=== PATIENT | female | born 1975 | race Caucasian/White ===

== ENCOUNTER 2017-08-19 23:54 | Emergency (ER) | payer SELFPAY ==
[~2017-08-19] VITALS: Ht 167.6 cm; Wt 91.0 kg
[~2017-08-19 23:54] MED LIST: NO HOME MEDS
[2017-08-20 00:50] LABS: CLARITY,URINE CLEAR (Clear); COLOR,URINE YELLOW (Yellow); GLUCOSE, URINE NEGATIVE (Neg); KETONES,URINE NEGATIVE (Neg); LEUKOCYTE ESTERASE ,URINE NEGATIVE (Neg); NITRITES, URINE NEGATIVE (Neg); OCCULT BLOOD,URINE MODERATE (Neg); PROTEIN,URINE NEGATIVE (Neg); UROBILINOGEN,URINE 0.2 E.U/dL (0.2-1.0)
[2017-08-20 01:12] LABS: UA COLLECTION TYPE CLN CATCH MIDSTREAM
[2017-08-20 01:13] LABS: BACTERIA,URINE FEW /HPF (Neg); MUCUS STRANDS MODERATE /LPF (Neg); SQUAMOUS EPITHELIAL CELL,UR FEW /LPF (FEW)
[2017-08-20 02:06] VITALS: BP 153/101
== END 2017-08-20 03:30 | disposition left against medical advice (07) ==
LOC: ER 23:54
DX: M54.5 Low back pain (principal); Z53.21 Procedure and treatment not carried out due to patient leaving prior to being seen by health care provider
CPT/HCPCS: 81001; 87088; 99281

== ENCOUNTER 2018-01-21 18:40 | Inpatient (IN) | payer BC, OTHER ==
[~2018-01-21] VITALS: Ht 165.1 cm; Wt 87.7 kg
[2018-01-21 19:25] LABS: BASOPHILS % (AUTO) 0.3 % (0-1); EOSINOPHILS # (AUTO) 0.1 X10'3 (0-0.9); EOSINOPHILS % (AUTO) 1.5 % (0-6); HEMATOCRIT 36.2 % (35.0-45.0); HEMOGLOBIN 12.2 g/dl (12.0-16.0); LYMPHOCYTES # (AUTO) 0.6 X10'3 (1.1-4.8); LYMPHOCYTES % (AUTO) 9.7 % (21-51); MEAN CORPUSCULAR HEMOGLOBIN 28.4 PG (27.0-31.0); MEAN CORPUSCULAR HGB CONC 33.7 % (33.0-36.5); MEAN CORPUSCULAR VOLUME 84.2 FL (78-98); MEAN PLATELET VOLUME 7.5 FL (7.4-10.4); MONOCYTES # (AUTO) 0.6 X10'3 (0-0.9); MONOCYTES % (AUTO) 8.9 % (2-12); NEUTROPHILS % (AUTO) 79.6 % (42-75); PLATELET COUNT 241 X10'3 (140-440); RED BLOOD COUNT 4.31 X10'6 (4.20-5.60); WHITE BLOOD COUNT 6.3 X10'3 (4.5-11.0)
[2018-01-21 19:42] LABS: PARTIAL THROMBOPLASTIN TIME 31 SECONDS (22-32); PROTHROMBIN TIME 10.1 SECONDS (9.0-12.0)
[2018-01-21 20:25] LABS: ALANINE AMINOTRANSFERASE 23 U/L (12-78); ALBUMIN 3.4 G/DL (3.4-5.0); ALKALINE PHOSPHATASE 84 IU/L (46-116); ANION GAP 11 (8-16); ASPARTATE AMINO TRANSFERASE 16 U/L (10-37); BILIRUBIN,TOTAL 0.1 MG/DL (0.1-1.0); BLOOD UREA NITROGEN 8 MG/DL (7-18); BUN/CREATININE RATIO 12.3 (6.6-38.0); CALCIUM 8.1 MG/DL (8.5-10.1); CHLORIDE 102 MMOL/L (99-107); CREATININE 0.65 MG/DL (0.40-0.90); GLUCOSE 92 MG/DL (70-104); POTASSIUM 3.8 MMOL/L (3.5-5.1); SODIUM 139 MMOL/L (135-145); TOTAL CARBON DIOXIDE 26.5 MMOL/L (24-32); TOTAL PROTEIN 6.7 G/DL (6.4-8.2); eGFR > 90 ML/MIN
[2018-01-21] MEDS ORDERED: iohexol 350MG/ML 100ml bottle IV ONE (20:27)
[2018-01-21 20:30] LABS: TROPONIN I < 0.04 NG/ML (0.0-0.05)
[2018-01-21 21:16] LABS: ETHANOL < 0.010 GM/DL (0.0-0.010)
[2018-01-21] MEDS ORDERED: LORazepam 2 mg/ml vial IV ONE (21:30)
[2018-01-21] MEDS ORDERED: morphine 4 MG/ML inj SYRINge IV ONE (21:30)
[2018-01-21] MEDS ORDERED: mag hydrox/Alum hydrox/simeth 30ml oral suspension PO PRN (22:05)
[2018-01-21] MEDS ORDERED: HYDROcodone/acetaminophen 10/325mg tab PO PRN (22:05)
[2018-01-21] MEDS ORDERED: magnesium hydroxide 30ml (MOM) UD suspension PO PRN (22:05)
[2018-01-21] MEDS ORDERED: HYDROcodone/acetaminophen 5mg/325mg tablet PO PRN (22:05)
[2018-01-21] MEDS ORDERED: ondansetron/PF 4mg/2ml inj IV PRN (22:05)
[2018-01-21] MEDS ORDERED: acetaminophen 325mg tablet PO PRN (22:05)
[2018-01-21 22:18] LABS: URINE AMPHETAMINE SCREEN POSITIVE (Neg); URINE BARBITUATE SCREEN NEGATIVE (Neg); URINE BENZODIAZEPINES SCREEN NEGATIVE (Neg); URINE CANNABINOID SCREEN NEGATIVE (Neg); URINE COCAINE SCREEN NEGATIVE (Neg); URINE METHADONE SCREEN NEGATIVE (Neg); URINE OPIATE SCREEN NEGATIVE (Neg); URINE PHENCYCLIDINE SCREEN NEGATIVE (Neg)
[2018-01-21] MEDS ORDERED: guaiFENesin/DM 10ml UD oral syrup PO PRN (23:20)
[2018-01-21 23:30] VITALS: BP 133/78
[2018-01-22 02:00] VITALS: BP 121/71
[2018-01-22 06:24] LABS: BASOPHILS % (AUTO) 0.4 % (0-1); EOSINOPHILS % (AUTO) 0.8 % (0-6); HEMATOCRIT 36.2 % (35.0-45.0); HEMOGLOBIN 12.2 g/dl (12.0-16.0); LYMPHOCYTES % (AUTO) 19.1 % (21-51); MEAN CORPUSCULAR HEMOGLOBIN 28.3 PG (27.0-31.0); MEAN CORPUSCULAR HGB CONC 33.8 % (33.0-36.5); MEAN CORPUSCULAR VOLUME 83.7 FL (78-98); MEAN PLATELET VOLUME 7.5 FL (7.4-10.4); MONOCYTES # (AUTO) 0.6 X10'3 (0-0.9); MONOCYTES % (AUTO) 10.4 % (2-12); NEUTROPHILS # (AUTO) 3.8 X10'3 (1.8-7.7); NEUTROPHILS % (AUTO) 69.3 % (42-75); PLATELET COUNT 221 X10'3 (140-440); RED BLOOD COUNT 4.32 X10'6 (4.20-5.60); RED CELL DISTRIBUTION WIDTH 13.8 % (11.5-14.5); WHITE BLOOD COUNT 5.4 X10'3 (4.5-11.0)
[2018-01-22 06:46] LABS: ALANINE AMINOTRANSFERASE 24 U/L (12-78); ALBUMIN 3.1 G/DL (3.4-5.0); ALKALINE PHOSPHATASE 62 IU/L (46-116); ANION GAP 9 (8-16); ASPARTATE AMINO TRANSFERASE 19 U/L (10-37); BILIRUBIN,TOTAL 0.2 MG/DL (0.1-1.0); BLOOD UREA NITROGEN 8 MG/DL (7-18); BUN/CREATININE RATIO 12.5 (6.6-38.0); CALCIUM 7.8 MG/DL (8.5-10.1); CHLORIDE 102 MMOL/L (99-107); CREATININE 0.64 MG/DL (0.40-0.90); GLUCOSE 87 MG/DL (70-104); POTASSIUM 3.3 MMOL/L (3.5-5.1); SODIUM 137 MMOL/L (135-145); TOTAL CARBON DIOXIDE 25.6 MMOL/L (24-32); TOTAL PROTEIN 6.3 G/DL (6.4-8.2); eGFR > 90 ML/MIN
[2018-01-22 10:42] VITALS: BP 156/93
[2018-01-22] MEDS: potassium Cl 20 mEq SR tablet PO PRN ×3 (11:56→20:32)
[2018-01-22] MEDS ORDERED: methylPREDNISolone sod succ 125mg/2ml vial IV ONE (15:25)
[2018-01-22] MEDS ORDERED: ipratropium 0.5 MG/2.5ML nebule IH SCH (16:00)
[2018-01-22] MEDS ORDERED: albuterol 2.5 MG/3 ML nebule NEB SCH (16:00)
[2018-01-22] MEDS: amox tr/potassium clavulanate 500mg/125mg TAB PO SCH (17:08)
[2018-01-22 18:00] VITALS: BP 103/54
[2018-01-22] MEDS: ipratropium/albuterol 3ml nebule NEB SCH ×2 (19:43→23:27)
[2018-01-22] MEDS: oseltamivir phos 75mg capsule PO SCH (20:32)
[2018-01-22] MEDS: nicotine 7mg patch - 24hr TD SCH ×2 (21:31→21:46)
[2018-01-22 23:00] VITALS: BP 107/53
[2018-01-23] MEDS: ipratropium/albuterol 3ml nebule NEB SCH ×3 (03:09→11:39)
[2018-01-23 06:00] VITALS: BP 107/58
[2018-01-23 06:46] LABS: BASOPHILS % (AUTO) 0.1 % (0-1); EOSINOPHILS % (AUTO) 0.4 % (0-6); HEMATOCRIT 39.4 % (35.0-45.0); HEMOGLOBIN 13.3 g/dl (12.0-16.0); LYMPHOCYTES # (AUTO) 0.6 X10'3 (1.1-4.8); LYMPHOCYTES % (AUTO) 11.2 % (21-51); MEAN CORPUSCULAR HEMOGLOBIN 28.5 PG (27.0-31.0); MEAN CORPUSCULAR HGB CONC 33.8 % (33.0-36.5); MEAN CORPUSCULAR VOLUME 84.3 FL (78-98); MEAN PLATELET VOLUME 7.7 FL (7.4-10.4); MONOCYTES # (AUTO) 0.3 X10'3 (0-0.9); MONOCYTES % (AUTO) 5.2 % (2-12); NEUTROPHILS # (AUTO) 4.5 X10'3 (1.8-7.7); NEUTROPHILS % (AUTO) 83.1 % (42-75); PLATELET COUNT 252 X10'3 (140-440); RED BLOOD COUNT 4.67 X10'6 (4.20-5.60); WHITE BLOOD COUNT 5.4 X10'3 (4.5-11.0)
[2018-01-23 06:50] LABS: ALANINE AMINOTRANSFERASE 29 U/L (12-78); ALBUMIN/GLOBULIN RATIO 0.8 (1.1-1.5); ALKALINE PHOSPHATASE 68 IU/L (46-116); ANION GAP 7 (8-16); ASPARTATE AMINO TRANSFERASE 19 U/L (10-37); BILIRUBIN,TOTAL 0.1 MG/DL (0.1-1.0); BLOOD UREA NITROGEN 13 MG/DL (7-18); BUN/CREATININE RATIO 18.3 (6.6-38.0); CALCIUM 8.7 MG/DL (8.5-10.1); CHLORIDE 103 MMOL/L (99-107); CREATININE 0.71 MG/DL (0.40-0.90); GLUCOSE 188 MG/DL (70-104); POTASSIUM 4.5 MMOL/L (3.5-5.1); SODIUM 137 MMOL/L (135-145); TOTAL CARBON DIOXIDE 26.9 MMOL/L (24-32); TOTAL PROTEIN 6.6 G/DL (6.4-8.2); eGFR > 90 ML/MIN
[2018-01-23] MEDS: amox tr/potassium clavulanate 500mg/125mg TAB PO SCH (08:56)
[2018-01-23] MEDS: oseltamivir phos 75mg capsule PO SCH (09:00)
[2018-01-23 10:00] VITALS: BP 118/62
[2018-01-23] MEDS ORDERED: PRED20TA PO (11:42)
[2018-01-23] MEDS ORDERED: NICO-630 TD (11:42)
[2018-01-23] MEDS ORDERED: AMOX1TAB15 PO (11:42)
[2018-01-23] MEDS ORDERED: TAM75C PO (11:42)
[2018-01-23] MEDS ORDERED: IPRA3AMP9 NEB (11:42)
[2018-01-23] MEDS ORDERED: PANT-47 PO (11:43)
[2018-01-23] MEDS ORDERED: COMP1EAC87 (11:44)
== END 2018-01-23 15:01 | disposition home or self-care (01) | DRG 194 ==
LOC: ER 18:41 → ED HOLD 22:05 → ORTHO 4S 22:55
PROVIDERS: ADMIT Internal Medicine; ATTEND Internal Medicine
PROC: B3251ZZ Computerized Tomography (CT Scan) of Bilateral Common Carotid Arteries using Low Osmolar Contrast (ICD-10-PCS; principal; 2018-01-21)
PROC: B32G1ZZ Computerized Tomography (CT Scan) of Bilateral Vertebral Arteries using Low Osmolar Contrast (ICD-10-PCS; 2018-01-21)
PROC: B3281ZZ Computerized Tomography (CT Scan) of Bilateral Internal Carotid Arteries using Low Osmolar Contrast (ICD-10-PCS; 2018-01-21)
DX: J10.1 Influenza due to other identified influenza virus with other respiratory manifestations (principal); R47.01 Aphasia; J98.01 Acute bronchospasm; F15.90 Other stimulant use, unspecified, uncomplicated; F17.210 Nicotine dependence, cigarettes, uncomplicated; J44.9 Chronic obstructive pulmonary disease, unspecified; R20.0 Anesthesia of skin; E87.6 Hypokalemia; R32 Unspecified urinary incontinence; Z88.6 Allergy status to analgesic agent; Z98.51 Tubal ligation status
CPT/HCPCS: 36415; 70450; 71045; 80053; 80305; 80320; 82948; 84484; 85025; 85610; 85730; 87070; 87502; 87503; 93005; 94640; 94760; 96374; 99291; G0378; J2060; J2270; J2930; Q9967

== ENCOUNTER 2022-04-20 15:24 | Emergency (ER) | payer BC ==
[~2022-04-20] VITALS: Ht 167.6 cm; Wt 95.5 kg
[~2022-04-20 15:24] MED LIST changes: +AMOX1TAB15 PO; +COMP1EAC87; +IPRA3AMP9 NEB; +NICO-630 TD; +PANT-47 PO; +TAM75C PO
[2022-04-20 16:48] LABS: BASOPHILS # (AUTO) 0.1 X10'3 (0-0.2); BASOPHILS % (AUTO) 0.5 % (0-1); EOSINOPHILS # (AUTO) 0.2 X10'3 (0-0.9); EOSINOPHILS % (AUTO) 1.6 % (0-6); HEMATOCRIT 43.3 % (35.0-45.0); HEMOGLOBIN 14.6 g/dl (12.0-16.0); LYMPHOCYTES % (AUTO) 30.9 % (21-51); MEAN CORPUSCULAR HEMOGLOBIN 27.7 PG (27.0-31.0); MEAN CORPUSCULAR HGB CONC 33.6 g/dL (33.0-36.5); MEAN CORPUSCULAR VOLUME 82.3 FL (78-98); MEAN PLATELET VOLUME 6.6 FL (7.4-10.4); MONOCYTES # (AUTO) 0.7 X10'3 (0-0.9); MONOCYTES % (AUTO) 6.8 % (2-12); NEUTROPHILS # (AUTO) 5.9 X10'3 (1.8-7.7); NEUTROPHILS % (AUTO) 60.2 % (42-75); PLATELET COUNT 313 X10'3 (140-440); RED BLOOD COUNT 5.27 X10'6 (4.20-5.60); RED CELL DISTRIBUTION WIDTH 14.8 % (11.5-14.5); WHITE BLOOD COUNT 9.8 X10'3 (4.5-11.0)
[2022-04-20 17:02] LABS: ALANINE AMINOTRANSFERASE 32 U/L (12-78); ALBUMIN 3.7 G/DL (3.4-5.0); ALBUMIN/GLOBULIN RATIO 1.1 (1.1-1.5); ALKALINE PHOSPHATASE 105 IU/L (46-116); ANION GAP 7 (8-16); ASPARTATE AMINO TRANSFERASE 22 U/L (10-37); BILIRUBIN,TOTAL 0.2 MG/DL (0.1-1.0); BLOOD UREA NITROGEN 14 MG/DL (7-18); BUN/CREATININE RATIO 17.3 (6.6-38.0); CALCIUM 9.1 MG/DL (8.5-10.1); CHLORIDE 103 MMOL/L (99-107); CREATININE 0.81 MG/DL (0.40-0.90); GLUCOSE 94 MG/DL (70-104); LIPASE 83 U/L (73-393); POTASSIUM 4.2 MMOL/L (3.5-5.1); SODIUM 140 MMOL/L (135-145); TOTAL CARBON DIOXIDE 30.4 MMOL/L (24-32); TOTAL PROTEIN 7.1 G/DL (6.4-8.2); eGFR 77 ML/MIN
[2022-04-20] MEDS ORDERED: normal saline 1000ML IV soln IVB ONE (18:00)
[2022-04-20] MEDS ORDERED: bisacodyl 10mg suppository rectal RC ONE (18:00)
--- NOTE | 2022-04-20 18:29 | NUR ---
recieved report from Pb ZELAYA assuming care of pt.
--- NOTE | 2022-04-20 18:43 | NUR ---
PLAN OF CARE REVIEWED WITH PT ALL QUESTIONS AND CONCERNS ADDRESSED TO PT VEBAL SATISFACTION. IVF INFUSING. SUPPOSITORY ADMIN COMPLETED, PT TOLERATED PROCEDURE WELL. 4/10 DULL ACHE VERBALIZE TO LOW BACK RADIATING TO ABD. PT DENIES N/V VS 79 18 146/93 SATS 99% A AT PESENT TIME. BED IN LOW POSITION CALL LIGHT IN REACH.
[2022-04-20 19:00] LABS: URINE HCG NEGATIVE (NEG)
[2022-04-20 19:06] LABS: CLARITY,URINE CLOUDY (Clear); COLOR,URINE YELLOW (Yellow); GLUCOSE, URINE NEGATIVE (Neg); KETONES,URINE NEGATIVE (Neg); LEUKOCYTE ESTERASE ,URINE NEGATIVE (Neg); NITRITES, URINE NEGATIVE (Neg); OCCULT BLOOD,URINE SMALL (Neg); PROTEIN,URINE NEGATIVE (Neg); UA COLLECTION TYPE CLN CATCH MIDSTREAM; UROBILINOGEN,URINE 0.2 E.U/dL (0.2-1.0)
[2022-04-20 19:21] LABS: BACTERIA,URINE 3+ /HPF (Neg); MUCUS STRANDS NONE SEEN /LPF (Neg); RBC,URINE 0-2 /HPF (0-2); SQUAMOUS EPITHELIAL CELL,UR MANY /LPF (FEW); WBC,URINE 0-4 /HPF (0-4)
[2022-04-20] MEDS ORDERED: lactulose 20gm/30ml cup PO ONE (21:05)
[2022-04-20 21:09] VITALS: BP 125/72
--- NOTE | 2022-04-20 21:21 | NUR ---
PT DC HOME WITH PRINTED INSTRUCTIONS ACKNOWLEDGED UNDERSTANDING VERBALLY ALL QUESTIONS AND CONCERNS ADDRESSED TO PT'S VERBAL SATISFACTION. PIV DC TIP INTACT DSG TO SITE NO ACTIVE BLEEDING NOTED AT PRESENT TIME. PT AMBULATED OUT OF UNIT STEADY GAIT.
== END 2022-04-20 21:24 | disposition home or self-care (01) ==
LOC: ER 15:25
DX: K59.00 Constipation, unspecified (principal); R10.84 Generalized abdominal pain; F15.90 Other stimulant use, unspecified, uncomplicated; Z79.899 Other long term (current) drug therapy; Z88.5 Allergy status to narcotic agent
CPT/HCPCS: 36415; 74018; 80053; 81001; 81025; 83690; 85025; 96360; 99285; J7030; 96361

== ENCOUNTER 2023-02-01 21:18 | Emergency (ER) | payer BC ==
[~2023-02-01] VITALS: Ht 165.1 cm; Wt 94.8 kg
[2023-02-01 21:27] VITALS: BP 154/75; PULSE 86; RESP 16; TEMP 98; O2SAT 99
== END 2023-02-02 03:42 | disposition left against medical advice (07) ==
LOC: ER 21:19
DX: M25.569 Pain in unspecified knee (principal); Z53.21 Procedure and treatment not carried out due to patient leaving prior to being seen by health care provider
CPT/HCPCS: 99281